=== PATIENT | female | born 1965 | race Hispanic/Latino ===

== ENCOUNTER 2018-05-05 20:38 | Emergency (ER) | payer MEDICAID ==
[2018-05-05 21:01] VITALS: BP 151/81; PULSE 87; RESP 20; TEMP 98.2; O2SAT 98
--- NOTE | 2018-05-05 21:50 | C.PDOC ---
History Of Present Illness 53 year old female presents to the ED for evaluation of left hand and forearm pain which developed two days ago after she sustained an injury to the area. Patient states she was walking her dog when her left index finger and left arm were hyperextended. She notes the pain is localized and worse with movement. Patient denies obvious deformity to Left hand, denies extremity numbness/ weakness. Ambulate to ED for evaluation, not in nay apparent distress. Time Seen by Provider: 05/05/18 20:47 Chief Complaint (Nursing): Upper Extremity Problem/Injury History Per: Patient History/Exam Limitations: no limitations Onset/Duration Of Symptoms: Days (2) Current Symptoms Are (Timing): Still Present Quality: "Pain" Exacerbating Factor(s): Movement Additional History Per: Patient Past Medical History Reviewed: Historical Data, Nursing Documentation, Vital Signs Vital Signs: Last Vital Signs Temp 98.2 F 05/05/18 20:59 Pulse 87 05/05/18 20:59 Resp 20 05/05/18 20:59 BP 151/81 H 05/05/18 20:59 Pulse Ox 98 05/05/18 22:11 - Medical History PMH: No Chronic Diseases Surgical History: No Surg Hx Family History: States: Unknown Family Hx - Social History Hx Alcohol Use: Yes Hx Substance Use: No - Immunization History Hx Tetanus Toxoid Vaccination: No Hx Influenza Vaccination: No Hx Pneumococcal Vaccination: No Review Of Systems Musculoskeletal: Positive for: Arm Pain (left ), Hand Pain (left, index finger ) Neurological: Negative for: Weakness, Numbness Physical Exam - Physical Exam Appears: Well, Non-toxic, No Acute Distress Skin: Normal Color, Warm, Dry, No Ecchymosis Extremity: Normal ROM (Left UE without difficulty or limitation.), Tenderness ( over left 2ndMCPJ. No edema, no palpable deformity.), Capillary Refill (less than 2 seconds left hand), No Deformity, No Swelling Pulses: Left Radial: Normal, Right Radial: Normal Neurological/Psych: Oriented x3, Normal Speech, Normal Motor, Normal Sensation, Normal Reflexes ED Course And Treatment O2 Sat by Pulse Oximetry: 98 (on RA) Pulse Ox Interpretation: Normal - Other Rad Left hand and wrist X-Ray: Interpreted by Me, Viewed By Me Interpretation: (+)Left 3rd middlephalanx FB noted. no acute fx or dislocation Progress Note: Left hand and left forearm XR ordered and reviewed. Motrin PO given. On re-eval, pt is afebrile, hemodynamicaly stable. NOn-toxic. LUE: exam c/w mild Left 2nd finger sprain, mild left wrist sprain. NO deformity, no neurovascular deficits with FAROM of LUE. Imagings review and appears without acute fx. Wilber wrap applied. Pt advised and ref. to f/u with PMD, Ortho in 2-3 days for re-eval. return to ED if any worsening or new changes. Disposition Counseled Patient/Family Regarding: Studies Performed, Diagnosis, Need For Followup, Rx Given - Disposition Referrals: [facility] [Outside] Rachel Elliott MD [Staff Provider] - Disposition: HOME/ ROUTINE Disposition Time: 21:50 Condition: STABLE Additional Instructions: RICE-rest, ice, compression, light duty Take Ibuprofen as need for pain Follow up with PMD, Orthopedist in 2-3 days for re-evaluation. return to ED if any worsening or new changes. Prescriptions: Ibuprofen [Motrin Tab] 600 mg PO TID #20 tab Instructions: Wrist Sprain (DC), Finger Sprain (DC) Forms: [employer] (Yemeni) - Clinical Impression Clinical Impression: Sprain, finger, Wrist sprain - PA / LINEMAN / Resident Statement MD/DO has reviewed & agrees with the documentation as recorded. - Scribe Statement The provider has reviewed the documentation as recorded by the Scribe (Candice Wells) All medical record entries made by the Scribe were at my direction and personally dictated by me. I have reviewed the chart and agree that the record accurately reflects my personal performance of the history, physical exam, medical decision making, and the department course for this patient. I have also personally directed, reviewed, and agree with the discharge instructions and disposition.
--- NOTE | 2018-05-06 09:01 | RAD ---
PROCEDURE: Left Hand Radiographs. HISTORY: injury COMPARISON: None. FINDINGS: BONES: Bone alignment and mineralization are normal. There is no acute displaced fracture or bone destruction. JOINTS: Normal. No osteoarthritic changes. SOFT TISSUES: Normal. OTHER FINDINGS: None. IMPRESSION: No acute fracture or dislocation.
--- NOTE | 2018-05-06 09:05 | RAD ---
Date of service: 05/05/2018 PROCEDURE: Radiographs of the Left Forearm HISTORY: injury COMPARISON: None available. TECHNIQUE: Frontal and lateral views obtained. FINDINGS: BONES: No fracture or destructive lesion. JOINT SPACES: Unremarkable. OTHER FINDINGS: None. IMPRESSION: Unremarkable radiographs of the left forearm.
== END 2018-05-05 22:18 | disposition home or self-care (01) ==
LOC: C.ER 20:38
DX: S63.502A Unspecified sprain of left wrist, initial encounter (principal); S63.611A Unspecified sprain of left index finger, initial encounter; Y93.K1 Activity, walking an animal

== ENCOUNTER 2018-06-07 19:10 | Emergency (ER) | payer MEDICAID ==
[2018-06-07 19:28] VITALS: BP 162/73; PULSE 100; RESP 20; TEMP 98.7; O2SAT 96
--- NOTE | 2018-06-07 19:39 | C.PDOC ---
History Of Present Illness 53 year old female presents to the ER with a complaint of pain to the left upper gum area for the past 2 days. Patient states she believes she has a tooth infection. She has been taking left over pain medication with no relief. Denies fever, trauma, or tooth discharge. Time Seen by Provider: 06/07/18 19:29 Chief Complaint (Nursing): Dental Pain History Per: Patient History/Exam Limitations: no limitations Onset/Duration Of Symptoms: Days Current Symptoms Are (Timing): Still Present Recent travel outside of the [place] States: No Past Medical History Reviewed: Historical Data, Nursing Documentation, Vital Signs Vital Signs: Last Vital Signs Temp 98.7 F 06/07/18 19:25 Pulse 100 H 06/07/18 19:25 Resp 20 06/07/18 19:25 BP 162/73 H 06/07/18 19:25 Pulse Ox 96 06/07/18 19:25 Family History: States: Unknown Family Hx - Social History Hx Alcohol Use: No Hx Substance Use: No - Immunization History Hx Tetanus Toxoid Vaccination: No Hx Influenza Vaccination: No Hx Pneumococcal Vaccination: No Review Of Systems Constitutional: Negative for: Fever, Chills ENT: Positive for: Mouth Pain, Mouth Swelling Respiratory: Negative for: Cough Physical Exam - Physical Exam Appears: Non-toxic Skin: Normal Color, Warm, Dry Head: Atraumatic, Normacephalic, No Swelling (Facial) Eye(s): bilateral: Normal Inspection Ear(s): Bilateral: Normal Nose: Normal Oral Mucosa: Moist, No Other (Swelling to floor of mouth) Tongue: Normal Appearing, No Swelling Lips: Normal Appearing, No Swelling Teeth: Caries (Extensive to left upper lateral incisor with tooth decay) Gingiva: Other (Swelling to left upper lateral incisor with tenderness to palpation) Throat: Normal, No Erythema, No Other (Swelling) Neck: Normal, Supple, No Other (Swelling) Neurological/Psych: Oriented x3, Normal Speech ED Course And Treatment O2 Sat by Pulse Oximetry: 96 (room air) Pulse Ox Interpretation: Normal Progress Note: Penicillin and tramadol administered. Patient is resting comfortably in the ER in no acute distress, vitals are stable, will discharge home with Rx and instructions to follow up with dentist. Disposition Counseled Patient/Family Regarding: Diagnosis, Need For Followup - Disposition Referrals: Dentist, Dental office [Other] Disposition: HOME/ ROUTINE Disposition Time: 19:39 Condition: STABLE Additional Instructions: Please follow up with Dentist Take meds as directed Return to ER if worse Prescriptions: Ibuprofen [Motrin Tab] 800 mg PO QID #20 tab Penicillin VK [Penicillin VK Tab] 2 tab PO BID #28 tab Instructions: Tooth Decay, Adult (DC) Forms: [employer] ([place]an) - Clinical Impression Clinical Impression: Dental caries - PA / FNPS / Resident Statement MD/DO has reviewed & agrees with the documentation as recorded. - Scribe Statement The provider has reviewed the documentation as recorded by the Scribchristina Head All medical record entries made by the Brinda were at my direction and personally dictated by me. I have reviewed the chart and agree that the record accurately reflects my personal performance of the history, physical exam, medical decision making, and the department course for this patient. I have also personally directed, reviewed, and agree with the discharge instructions and disposition.
[2018-06-07] MEDS ORDERED: Tramadol 25 mg PO STA (19:44)
== END 2018-06-07 20:09 | disposition home or self-care (01) ==
LOC: C.ER 19:10
DX: K02.9 Dental caries, unspecified (principal)

== ENCOUNTER 2018-06-20 23:48 | Emergency (ER) | payer SELFPAY ==
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
[2018-06-21] MEDS ORDERED: Tetanus/Diphtheria Toxoids 0.5 ml Syringe IM ONE (01:12)
[2018-06-21] MEDS ORDERED: Tdap Vaccine 0.5 ml Vial (10-64 yrs) IM ONE (01:39)
[2018-06-21 05:26] VITALS: BP 145/77; PULSE 91; RESP 18; TEMP 97.6; O2SAT 100
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
== END 2018-06-21 06:13 | disposition home or self-care (01) ==
LOC: C.ER 23:48
DX: S00.83XA Contusion of other part of head, initial encounter (principal); S61.431A Puncture wound without foreign body of right hand, initial encounter; X99.1XXA Assault by knife, initial encounter; Z23 Encounter for immunization

== ENCOUNTER 2018-09-06 22:41 | Emergency (ER) | payer MEDICAID ==
--- NOTE | 2018-09-06 23:18 | C.PDOC ---
History Of Present Illness 53 year old female presents to the ER with a complaint of occasional right abdominal colic pain for the past 3 months. Patient notes she has had infrequent bowel movements. She works 100 hours a week at [employer]. Denies nausea, vo miting, or diarrhea. Time Seen by Provider: 09/06/18 23:13 Chief Complaint (Nursing): Back Pain History Per: Patient History/Exam Limitations: no limitations Onset/Duration Of Symptoms: Days Current Symptoms Are (Timing): Still Present Previous Symptoms: None Associated Symptoms: None Recent travel outside of the [place] States: No Past Medical History Reviewed: Historical Data, Nursing Documentation, Vital Signs Vital Signs: Last Vital Signs Temp 97.6 F 09/06/18 22:47 Pulse 82 09/06/18 22:47 Resp 14 09/06/18 22:47 BP 172/85 H 09/06/18 22:47 Pulse Ox 99 09/06/18 22:47 Family History: States: Unknown Family Hx - Social History Hx Alcohol Use: No Hx Substance Use: No - Immunization History Hx Tetanus Toxoid Vaccination: No Hx Influenza Vaccination: No Hx Pneumococcal Vaccination: No Review Of Systems Constitutional: Negative for: Fever, Chills Cardiovascular: Negative for: Chest Pain, Palpitations Respiratory: Negative for: Cough, Shortness of Breath Gastrointestinal: Positive for: Abdominal Pain. Negative for: Nausea, Vomiting, Diarrhea Genitourinary: Positive for: Other (Irregular menstrual bleeding, recent pap smear was positive but has not gone for follow up, occasional breast achiness) Neurological: Negative for: Weakness, Numbness Physical Exam - Physical Exam Appears: Non-toxic, No Acute Distress, Other (White female) Skin: Normal Color, Warm, Dry Head: Atraumatic, Normacephalic Eye(s): bilateral: Normal Inspection Oral Mucosa: Moist Chest: Symmetrical, No Tenderness, Other (Breast exam deferred.) Cardiovascular: Rhythm Regular Respiratory: Normal Breath Sounds, No Rales, No Rhonchi, No Wheezing Gastrointestinal/Abdominal: Soft, No Tenderness, No Distention, Other (Obese) Neurological/Psych: Oriented x3, Normal Speech ED Course And Treatment - Laboratory Results Result Diagrams: 09/06/18 23:50 09/06/18 23:50 Lab Interpretation: Normal (ua neg.) Urine POC: Negative ECG: Interpreted By Me ECG Rhythm: Sinus Rhythm ECG Interpretation: Normal Rate From EC O2 Sat by Pulse Oximetry: 99 (Room air) Pulse Ox Interpretation: Normal - Radiology CXR: Interpreted by Me CXR Interpretation: Yes: No Acute Disease - Other Rad abd x 2 X-Ray: Interpreted by Me (+ increased stool R side) Reevaluation Time: 00:25 Reassessment Condition: Improved Medical Decision Making Medical Decision Making: abd colic R side chronic constip LOW susp of renal colic DUB: occasional spotting 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 perimenopausa ? cervical dysplasia pending bx re-direct to [facility] for further eval and bx. Disposition Doctor Will See Patient In The: Office Counseled Patient/Family Regarding: Studies Performed, Diagnosis - Disposition Referrals: [facility] [Outside] [facility] [Outside] [facility] [Outside] [facility] [Outside] Disposition: HOME/ ROUTINE Disposition Time: 00:31 Condition: GOOD Additional Instructions: abdominal colic normal urine (low susp of renal colic) + increased stool R flank area diet and exercise changes Dysfunctional Uterine Bleeding test negative ? perimenopausal ? cervical dysplasia/abnormalities [facility] for further outpatient eval and biopsy as needed Instructions: Absent or Irregular Periods, Constipation, Adult (DC), Gas and Bloating (ED) Forms: [facility] [employer] (Chinese) - Clinical Impression Clinical Impression: Colicky RUQ abdominal pain, DUB (dysfunctional uterine bleeding) - Scribe Statement The provider has reviewed the documentation as recorded by the Scribe Jason Head All medical record entries made by the Scribe were at my direction and personally dictated by me. I have reviewed the chart and agree that the record accurately reflects my personal performance of the history, physical exam, medical decision making, and the department course for this patient. I have also personally directed, reviewed, and agree with the discharge instructions and disposition.
[2018-09-06 23:43] LABS: HCG,QUALITATIVE URINE NEGATIVE (NEGATIVE); SQUAMOUS EPITHIAL 1 /hpf (0-5); URINE BACTERIA FEW (<OCC); URINE BILIRUBIN NEGATIVE (NEGATIVE); URINE BLOOD NEGATIVE (NEGATIVE); URINE CLARITY Clear (Clear); URINE COLOR Yellow (YELLOW); URINE GLUCOSE (UA) NORMAL (Normal); URINE LEUKOCYTE ESTERASE NEG Leu/uL (Negative); URINE PROTEIN NEGATIVE (NEGATIVE); URINE UROBILINOGEN NORMAL mg/dL (0.2-1.0)
[2018-09-06 23:53] LABS: BASO # 0.1 K/uL (0.0-0.2); BASO % 1.1 % (0.0-2.0); EOS # 0.1 K/uL (0.0-0.7); HEMOGLOBIN 14.5 g/dL (11.0-16.0); LYMPH # 4.1 K/uL (1.0-4.3); LYMPH % 43.7 % (20.0-40.0); MEAN CELL VOLUME 88.1 fL (81.0-99.0); MEAN CORPUSCULAR HEMOGLOBIN 29.8 pg (27.0-31.0); MEAN CORPUSCULAR HGB CONC 33.9 g/dL (33.0-37.0); MEAN PLATELET VOLUME 8.8 fL (7.2-11.7); MONO # 1.2 K/uL (0.0-0.8); MONO % 12.8 % (0.0-10.0); NEUT # 3.8 K/uL (1.8-7.0); NEUT % 41.4 % (50.0-75.0); NRBC % 0.1 % (0.0-2.0); RBC 4.87 Mil/uL (3.80-5.20); RED CELL DISTRIBUTION WIDTH 13.5 % (11.5-14.5); WHITE BLOOD COUNT 9.3 K/uL (4.8-10.8)
[2018-09-06 23:55] LABS: BARBITURATES, UR NEGATIVE (NEGATIVE); BENZODIAZEPINES, UR NEGATIVE (NEGATIVE); OPIATES, UR NEGATIVE (NEGATIVE); PHENCYCLIDINE, UR NEGATIVE (NEGATIVE)
[2018-09-07 00:07] LABS: ALB/GLOB RATIO 1.4 (1.0-2.1); ALBUMIN 4.6 g/dL (3.5-5.0); ALT/SGPT 57 U/L (9-52); AST/SGOT 51 U/L (14-36); BLOOD UREA NITROGEN 23 mg/dL (7-17); CALCIUM 9.9 mg/dl (8.6-10.4); GFR NON-AFRICAN AMERICAN > 60
[2018-09-07 00:14] LABS: B-TYPE NATRIURETIC PEPTIDE 40.4 pg/mL (0-900)
[2018-09-07 00:52] VITALS: BP 132/84; PULSE 78; RESP 20; TEMP 98
[2018-09-07 04:39] VITALS: O2SAT 99
--- NOTE | 2018-09-07 10:38 | RAD ---
Date of service: 09/06/2018 PROCEDURE: Radiographs of the chest and abdomen (obstructive series) HISTORY: crampy R flank pain COMPARISON: No prior. TECHNIQUE: AP radiograph of the chest, with upright and supine radiographs of the abdomen. FINDINGS: CHEST: Lungs: Clear. Cardiovascular: Normal size heart. No pulmonary vascular congestion. No aortic atherosclerotic calcification present Pleura: No pleural fluid. No pneumothorax. Other findings: None. ABDOMEN AND PELVIS: Bowel: Unremarkable bowel gas pattern. No evidence of mechanical obstruction. Free air: None. Bones: Unremarkable. Other findings: No abnormal intra-abdominal calcifications IMPRESSION: No evidence of urinary calculus. Unremarkable examination.
--- NOTE | 2018-09-08 01:33 | CARD ---
APPROVED REPORT Date of service: 09/07/2018 EKG Measurement Heart [id number] <Conclusion> Normal sinus rhythm Normal ECG
== END 2018-09-07 00:51 | disposition home or self-care (01) ==
LOC: C.ER 22:41
DX: R10.11 Right upper quadrant pain (principal); N93.8 Other specified abnormal uterine and vaginal bleeding

== ENCOUNTER 2018-09-13 00:18 | Emergency (ER) | payer MEDICAID ==
[2018-09-13 00:38] VITALS: BP 167/96; PULSE 109; RESP 20; TEMP 97.5; O2SAT 100
--- NOTE | 2018-09-13 01:36 | C.PDOC ---
History Of Present Illness 53 year old female presents to the ED for evaluation. Patient requests to have her ear checked. Patient reports while cleaning her ear with a Q-tip she saw some blood. Patient states she does no feel good and is also c/o cough, nasal congestion, feeling tired and needs rest. Patient denies dizziness, headache, visual changes, injury, fall, trauma, weakness, numbness. Time Seen by Provider: 09/13/18 00:41 Chief Complaint (Nursing): ENT Problem History Per: Patient History/Exam Limitations: no limitations Onset/Duration Of Symptoms: Hrs Current Symptoms Are (Timing): Still Present Recent travel outside of the [place]: No Additional History Per: Patient Past Medical History Reviewed: Historical Data, Nursing Documentation, Vital Signs Vital Signs: Last Vital Signs Temp 97.5 F L 09/13/18 00:32 Pulse 109 H 09/13/18 00:32 Resp 20 09/13/18 00:32 BP 167/96 H 09/13/18 00:32 Pulse Ox 100 09/13/18 00:32 - Medical History PMH: No Chronic Diseases Surgical History: No Surg Hx Family History: States: Unknown Family Hx - Social History Hx Alcohol Use: No Hx Substance Use: No - Immunization History Hx Tetanus Toxoid Vaccination: No Hx Influenza Vaccination: No Hx Pneumococcal Vaccination: No Review Of Systems Constitutional: Positive for: Malaise. Negative for: Fever, Chills Eyes: Negative for: Vision Change ENT: Positive for: Ear Pain, Nose Congestion. Negative for: Nose Discharge Cardiovascular: Negative for: Chest Pain Respiratory: Positive for: Cough. Negative for: Shortness of Breath Gastrointestinal: Negative for: Nausea, Vomiting, Abdominal Pain Skin: Negative for: Rash Neurological: Negative for: Weakness, Numbness, Headache, Dizziness Physical Exam - Physical Exam Appears: Non-toxic, No Acute Distress Skin: Normal Color, Warm, Dry Head: Atraumatic, Normacephalic Eye(s): bilateral: Normal Inspection, Other (pin point pupils ) Ear(s): Bilateral: Normal (no active bleeding, dry blood, erythema, or effusion) Oral Mucosa: Moist Throat: Normal, No Erythema, No Exudate Neck: Normal ROM, Supple Chest: Symmetrical Cardiovascular: Rhythm Regular Respiratory: Normal Breath Sounds, No Rales, No Rhonchi, No Wheezing Gastrointestinal/Abdominal: Soft, No Tenderness, No Guarding, No Rebound Extremity: Normal ROM, No Tenderness, No Swelling Neurological/Psych: Oriented x3, Normal Speech, Normal Cognition, Normal Motor, Normal Sensation Gait: Steady ED Course And Treatment O2 Sat by Pulse Oximetry: 100 (ON RA) Pulse Ox Interpretation: Normal Progress Note: Patient's Boyfriend was adamant for patient to be checked fully from head to toe to find the source of the blood. Patient and Boyfriend were educated and informed that no signs of bllod were seen in the physical exam. Patient was advised to follow up with PMD or clinic for further evaluation. Disposition Counseled Patient/Family Regarding: Diagnosis, Need For Followup - Disposition Referrals: [facility] [Outside] Disposition: HOME/ ROUTINE Disposition Time: 01:34 Condition: STABLE Additional Instructions: Please follow up in clinic or with your doctor Return to ER if any concerns Forms: [employer] ([place]), General Discharge Instructions - Clinical Impression Clinical Impression: ENT complaint - PA / MEDICAL RECORDS AUDITOR / Resident Statement MD/DO has reviewed & agrees with the documentation as recorded. - Scribe Statement The provider has reviewed the documentation as recorded by the Scribe Guero Jacob All medical record entries made by the Scribe were at my direction and personally dictated by me. I have reviewed the chart and agree that the record accurately reflects my personal performance of the history, physical exam, medical decision making, and the department course for this patient. I have also personally directed, reviewed, and agree with the discharge instructions and disposition.
== END 2018-09-13 01:49 | disposition home or self-care (01) ==
LOC: C.ER 00:18
DX: Z01.10 Encounter for examination of ears and hearing without abnormal findings (principal)

== ENCOUNTER 2018-10-18 15:47 | Emergency (ER) | payer MEDICAID ==
[2018-10-18 15:53] VITALS: BP 169/84; PULSE 75; RESP 16; TEMP 98; O2SAT 98
[2018-10-18] MEDS ORDERED: Tdap Vaccine 0.5 ml Vial (10-64 yrs) IM ONE ×2 (16:04→16:36)
[2018-10-18] MEDS ORDERED: Bacitracin 500 Units/gm Oint Foilpak UD TOP ONE (16:05)
--- NOTE | 2018-10-18 16:09 | C.PDOC ---
History Of Present Illness 53 year old female presents to the ED for evaluation after she sustained an injury to her right thigh prior to arrival. Patient states she accidentally slipped down the stairs and hit her right thigh and reports an abrasion to the area. She denies head injury, loss of consciousness, neck pain, back pain, extremity numbness/weakness. Time Seen by Provider: 10/18/18 15:53 Chief Complaint (Nursing): Lower Extremity Problem/Injury History Per: Patient History/Exam Limitations: no limitations Onset/Duration Of Symptoms: Hrs Current Symptoms Are (Timing): Still Present Additional History Per: Patient Past Medical History Reviewed: Historical Data, Nursing Documentation, Vital Signs Vital Signs: Last Vital Signs Temp 98 F 10/18/18 15:50 Pulse 75 10/18/18 15:50 Resp 16 10/18/18 15:50 BP 169/84 H 10/18/18 15:50 Pulse Ox 98 10/18/18 15:50 - Medical History PMH: No Chronic Diseases Surgical History: No Surg Hx Family History: States: Unknown Family Hx - Social History Hx Alcohol Use: No Hx Substance Use: No - Immunization History Hx Tetanus Toxoid Vaccination: No Hx Influenza Vaccination: No Hx Pneumococcal Vaccination: No Review Of Systems Musculoskeletal: Positive for: Other (right thigh pain and abrasion ). Negative for: Neck Pain, Back Pain Neurological: Negative for: Weakness, Numbness, Other (head injury, LOC ) Physical Exam - Physical Exam Appears: Non-toxic, No Acute Distress Skin: Normal Color, Warm, Dry, Other (abrasion to right mid-lateral thigh with mild surrounding erythema. no active bleeding. no warmth ) Head: Atraumatic, Normacephalic Eye(s): bilateral: Normal Inspection Neck: Normal ROM, No Midline Cervical Tenderness, Supple Chest: Symmetrical, No Deformity, No Tenderness Back: No Vertebral Tenderness, No Paraspinal Tenderness Extremity: Normal ROM, Tenderness (mild, to mid-lateral thigh ), Capillary Refill (less than 2 seconds ), No Deformity, No Swelling Pulses: Right Femoral: Normal, Right Dorsalis Pedis: Normal Neurological/Psych: Oriented x3, Normal Speech, Normal Cognition, Normal Motor, Normal Sensation ED Course And Treatment O2 Sat by Pulse Oximetry: 98 (on RA) Pulse Ox Interpretation: Normal Medical Decision Making Medical Decision Making: Plan: * Right Femur XR * Tylenol PO * Tetanus IM * Bacitracin TOP * reassess and disposition Progress: Right femur XR ordered and reviewed. wet read no fx noted. Tylenol PO and Tetanus IM administered. Bacitracin TOP applied. Disposition Counseled Patient/Family Regarding: Studies Performed, Diagnosis, Need For Followup, Rx Given - Disposition Referrals: [facility] [Outside] [facility] [Outside] Disposition: HOME/ ROUTINE Disposition Time: 16:28 Condition: GOOD Additional Instructions: Tylenol for pain. Bacitracin onto abrasion. Call virtual office assistant service for help making appiointments with aerologist and internal medicine. Can apply cool compress to right leg if any swelling. Prescriptions: Acetaminophen [Tylenol 325mg tab] 650 mg PO Q6 #30 tab Bacitracin OINT 1 applic TOP BID #1 tube Instructions: Skin Abrasions (DC) Forms: [employer] ([place]), General Discharge Instructions - Clinical Impression Clinical Impression: Fall from slipping on wet surface, Abrasion, right thigh, initial encounter - PA / SWING MANAGER / Resident Statement MD/DO has reviewed & agrees with the documentation as recorded. - Scribe Statement The provider has reviewed the documentation as recorded by the Scribe (Candice Wells) All medical record entries made by the Scribe were at my direction and personally dictated by me. I have reviewed the chart and agree that the record accurately reflects my personal performance of the history, physical exam, medical decision making, and the department course for this patient. I have also personally directed, reviewed, and agree with the discharge instructions and disposition.
--- NOTE | 2018-10-18 16:30 | RAD ---
Date of service: 10/18/2018 PROCEDURE: Right Femur Radiographs. HISTORY: lateral femur pain s/p fall COMPARISON: None. TECHNIQUE: AP and Lateral Radiographs of the right femur. FINDINGS: FEMUR: Bone alignment and mineralization are normal. There is no acute fracture or bone destruction. The joint spaces are preserved. SOFT TISSUES: There is curvilinear calcification lateral to the greater trochanter. OTHER FINDINGS: None. IMPRESSION: No acute fracture or dislocation. Curvilinear calcification lateral to the greater trochanter most likely related to tendon calcifications and could represent trochanteric bursitis in the appropriate clinical setting.
[2018-10-18] MEDS ORDERED: Bacitracin 500 Units/gm Oint Foilpak UD ONE (16:35)
== END 2018-10-18 16:50 | disposition left against medical advice (07) ==
LOC: C.ER 15:47
DX: S70.311A Abrasion, right thigh, initial encounter (principal); W10.9XXA Fall (on) (from) unspecified stairs and steps, initial encounter